=== PATIENT | female | born 1970 | race African-American/Black ===

== ENCOUNTER 2017-04-10 18:25 | Emergency (ER) | payer OTHER ==
[~2017-04-10] VITALS: Ht 175.3 cm; Wt 155.0 kg
[~2017-04-10 18:25] MED LIST: [UNRECOGNIZED DRUG - OTHER]
[2017-04-10 18:27] VITALS: BP 156/96
== END 2017-04-10 20:56 | disposition left against medical advice (07) ==
LOC: ER 18:25
DX: Z53.21 Procedure and treatment not carried out due to patient leaving prior to being seen by health care provider (principal)

== ENCOUNTER 2023-09-14 15:42 | Emergency (ER) | payer MEDICAID, OTHER ==
[~2023-09-14] VITALS: Ht 175.3 cm; Wt 120.0 kg
[2023-09-14 15:47] VITALS: O2SAT 97
[2023-09-14 18:17] LABS: BASOPHILS % 0.9 % (0.0-2.0); DIFFERENTIAL COMMENT 0; EOSINOPHILS % 2.6 % (0.0-5.0); HEMATOCRIT. 34.1 % (36.0-48.0); HEMOGLOBIN. 10.5 g/dL (12.0-16.0); LYMPHOCYTES % 38.9 % (20.0-50.0); MEAN CORPUSCULAR HEMOGLOBIN 23.2 pg (28.0-32.0); MEAN CORPUSCULAR HGB CONC 30.9 g/dL (31.0-37.0); MEAN CORPUSCULAR VOLUME 75.2 fL (81.0-99.0); MEAN PLATELET VOLUME 8.7 fl (7.4-10.4); MONOCYTES % 7.6 % (2.0-8.0); PLATELET 222 x1000/uL (130-400); RED BLOOD CELL COUNT 4.53 mill/uL (4.2-5.4); RED CELL DISTRIBUTION WIDTH 16.5 % (11.6-14.6); WHITE BLOOD COUNT 4.8 x1000/uL (4.5-11.0)
[2023-09-14 18:39] LABS: ALANINE AMINOTRANSFERASE 23 IU/L (10-49); ALBUMIN 4.2 g/dL (3.2-4.8); ASPARTATE AMINOTRANSFERASE 20 IU/L (<34); BILIRUBIN TOTAL 0.6 mg/dL (0.1-1.0); CALCIUM 9.6 mg/dL (8.7-10.4); CARBON DIOXIDE 24 mEq/L (21-32); CHLORIDE 108 mEq/L (98-107); CREATININE 1.3 mg/dL (0.6-1.0); GLUCOSE 139 mg/dL (70-105); POTASSIUM 3.7 mEq/L (3.5-5.1); PROTEIN TOTAL 7.3 g/dL (6.0-8.3); SODIUM 141 mEq/L (136-145); UREA NITROGEN BLOOD 17 mg/dL (9-23)
[2023-09-14] MEDS ORDERED: XAR15 MT (18:51)
[2023-09-14] MEDS ORDERED: ENOXAPARIN 120MG/0.8ML SYR SUBCUT NR (19:00)
[2023-09-14 19:55] VITALS: BP 140/77; PULSE 75; RESP 15; TEMP 98.5
== END 2023-09-14 19:56 | disposition home or self-care (01) ==
LOC: ER 15:42
DX: I82.402 Acute embolism and thrombosis of unspecified deep veins of left lower extremity (principal); I82.90 Acute embolism and thrombosis of unspecified vein; I10 Essential (primary) hypertension; E11.9 Type 2 diabetes mellitus without complications; Z88.8 Allergy status to other drugs, medicaments and biological substances; Z88.9 Allergy status to unspecified drugs, medicaments and biological substances; Z88.5 Allergy status to narcotic agent; Z98.890 Other specified postprocedural states; Z90.49 Acquired absence of other specified parts of digestive tract
CPT/HCPCS: 99285; 93970; 80053; 85025; 36415; 73030; 73610; 96372; J1650

== ENCOUNTER 2023-09-26 05:45 | Emergency (ER) | payer MEDICAID ==
[~2023-09-26] VITALS: Ht 167.6 cm; Wt 90.0 kg
[~2023-09-26 05:45] MED LIST changes: +XAR15 MT
[2023-09-26 05:49] VITALS: O2SAT 99
[2023-09-26 09:12] VITALS: BP 150/88
[2023-09-26] MEDS ORDERED: KETOROLAC 30MG/ML VIAL IM ONE (09:15)
[2023-09-26 09:30] VITALS: PULSE 85; RESP 16; TEMP 98
== END 2023-09-26 09:32 | disposition home or self-care (01) ==
LOC: ER 05:55
DX: S83.92XA Sprain of unspecified site of left knee, initial encounter (principal); E11.9 Type 2 diabetes mellitus without complications; I11.0 Hypertensive heart disease with heart failure; I50.9 Heart failure, unspecified; Z88.5 Allergy status to narcotic agent; Z88.8 Allergy status to other drugs, medicaments and biological substances; Z88.9 Allergy status to unspecified drugs, medicaments and biological substances; Z90.49 Acquired absence of other specified parts of digestive tract; Z98.890 Other specified postprocedural states; X58.XXXA Exposure to other specified factors, initial encounter; Y93.89 Activity, other specified; Y92.89 Other specified places as the place of occurrence of the external cause; Y99.8 Other external cause status
CPT/HCPCS: 99283; 73560; 96372; J1885